=== PATIENT | female | born 1985 | race African-American/Black ===

== ENCOUNTER 2017-12-28 07:33 | Outpatient (CLI) | payer OTHER ==
[2017-12-28] MEDS ORDERED: Iopamidol 370 76% 100 ML VIAL ONE (13:32)
== END 2017-12-28 07:34 | disposition home or self-care (01) ==
LOC: BICCT 07:33
PROVIDERS: ATTEND Family Medicine
DX: R10.31 Right lower quadrant pain (principal); K59.00 Constipation, unspecified
CPT/HCPCS: 74177